=== PATIENT | female | born 1950 | race Caucasian/White ===

== ENCOUNTER 2024-08-15 23:35 | Emergency (ER) | payer BC, MEDICAID ==
[~2024-08-15] VITALS: Ht 162.6 cm; Wt 79.5 kg
[2024-08-16 00:57] LABS: BASOPHILS % (AUTO) 0.3 % (0-1); EOSINOPHILS % (AUTO) 0.5 % (0-6); HEMATOCRIT 43.2 % (35.0-45.0); HEMOGLOBIN 14.9 g/dl (12.0-16.0); LYMPHOCYTES # (AUTO) 0.6 X10'3 (1.1-4.8); LYMPHOCYTES % (AUTO) 6.1 % (21-51); MEAN CORPUSCULAR HGB CONC 34.5 g/dL (33.0-36.5); MEAN CORPUSCULAR VOLUME 92.7 FL (78-98); MEAN PLATELET VOLUME 8.7 FL (7.4-10.4); MONOCYTES # (AUTO) 0.4 X10'3 (0-0.9); MONOCYTES % (AUTO) 4.1 % (2-12); NEUTROPHILS # (AUTO) 8.5 X10'3 (1.8-7.7); PLATELET COUNT 232 X10'3 (140-440); RED BLOOD COUNT 4.66 X10'6 (4.20-5.60); RED CELL DISTRIBUTION WIDTH 13.1 % (11.5-14.5); WHITE BLOOD COUNT 9.5 X10'3 (4.5-11.0)
[2024-08-16 01:06] LABS: ALANINE AMINOTRANSFERASE 29 U/L (12-78); ALBUMIN 4.2 G/DL (3.4-5.0); ALKALINE PHOSPHATASE 71 IU/L (46-116); ANION GAP 11 (8-16); ASPARTATE AMINO TRANSFERASE 28 U/L (10-37); BILIRUBIN,TOTAL 0.7 MG/DL (0.1-1.0); BLOOD UREA NITROGEN 13 MG/DL (7-18); BUN/CREATININE RATIO 10.7 (10.0-20.0); CALCIUM 9.3 MG/DL (8.5-10.1); CHLORIDE 100 MMOL/L (99-107); CREATININE 1.22 MG/DL (0.40-0.90); GLUCOSE 173 MG/DL (70-104); LIPASE 26 U/L (16-77); POTASSIUM 4.1 MMOL/L (3.5-5.1); SODIUM 134 MMOL/L (135-145); TOTAL PROTEIN 8.3 G/DL (6.4-8.2); eCRCL 34 ML/MIN; eGFR 43 ML/MIN
--- NOTE | 2024-08-16 03:07 | Physician Documentation ---
History of Present Illness ~ Chief Complaint: Vomiting w/diarrhea Stated Complaint: VOMITING Time Seen by MD: 03:07 HPI 74-year-old female, who presents with sudden onset of abdominal pain, vomiting and diarrhea. She tells me that earlier today, she suddenly developed pain in her upper abdomen. She had multiple episodes of vomiting and diarrhea. She was sitting on the toilet and felt lightheaded like she is going to pass out. It was profuse and watery, nonbloody. She also reports subjective fevers and chills. She reports a history of chronic intermittent upper abdominal pain, but normally takes a gas pill and it gets better. Today it did not get better. No new foods or obvious exposures. No known sick contacts. No history of abdominal surgeries. She did receive Zofran in the ambulance and it helped a little bit. Medication Reconciliation Allergies: Coded Allergies: No Known Allergies (Unverified , 08/16/24) Scheduled PRN ONDANSETRON ODT 4mg tablet (Ondansetron Odt), 1 TAB PO Q6H PRN PRN for nausea/vomiting Review of Systems Constitutional: Reports: chills, fever Gastrointestinal: Reports: abdominal pain, nausea, vomiting, diarrhea Physical Exam Vital Signs: Temperature: 98.4, Source: Oral, Heart Rate: 88, Respiratory Rate: 16, BP: 124/69, Pulse Oximetry: 97, Weight: 79.550 Oxygen Flow Rate: 0 Physical Exam General: This is a tired appearing older female, daughter at bedside HEENT: Atraumatic, oropharynx is dry with cracked lips Heart: Regular rate and rhythm, normal-appearing peripheral perfusion Lungs: normal work of breathing, normal oxygen saturation on room air Abdomen: Soft, nondistended, mild tenderness to palpation in the epigastric region only, otherwise nontender, no rebound or guarding Neuro: Alert and oriented, no focal deficits Psychiatric: Flattened affect, appears tired Progress Results/Orders Results/Orders Orders - INZE SÁNCHEZ MD Urinalysis, Cult If Indicated (08/16/24 00:02) Completed Orders - INEZ SÁNCHEZ MD Cbc/Diff (08/16/24 00:02) Lipase (08/16/24 00:02) CMP (08/16/24 00:02) Normal Saline 1000ml (Sodium Chloride 10 (08/16/24 03:20) Ondansetron Inj. (Zofran 4mg/2ml Vial) (08/16/24 03:20) Dicyclomine Inj (Bentyl Inj) (08/16/24 03:20) Mag & Alum Hydrox/Simeth Susp (Maalox Or (08/16/24 03:20) Ondansetron Disint. Tablet (Zofran Odt T (08/16/24 05:05) Medications Received in ER Medications (Trade) Dose Ordered Sig/Fidelia Route PRN Reason Start Time Stop Time Status Last Admin Dose Admin Sodium Chloride 1,000 ml @ 1,000 mls/hr ONCE ONCE IV 08/16/24 03:20 08/16/24 04:19 DC 08/16/24 04:02 1,000 MLS/HR (Zofran 4mg/2ml vial) 4 mg ONCE ONCE IV 08/16/24 03:20 08/16/24 03:21 DC 08/16/24 04:02 4 MG (Bentyl inj) 20 mg ONCE ONCE IM 08/16/24 03:20 08/16/24 03:21 DC 08/16/24 04:02 20 MG (Maalox oral suspension) 30 ml ONCE ONCE PO 08/16/24 03:20 08/16/24 03:21 DC 08/16/24 04:02 30 ML (Zofran ODT tablet) 4 mg ONCE ONCE PO 08/16/24 05:05 08/16/24 05:11 DC 08/16/24 05:31 4 MG Vital Signs 08/16/24 08/16/24 08/16/24 08/16/24 00:03 02:21 03:00 04:08 Temp 97.4 98.4 Pulse 91 94 88 Resp 16 16 16 16 B/P (MAP) 104/56 98/50 (66) 124/69 (87) Pulse Ox 98 97 97 O2 Flow Rate 0 0 0 08/16/24 04:17 Pulse 74 Resp 18 B/P (MAP) 122/71 (88) Pulse Ox 97 Laboratory Tests Test 08/16/24 00:39 White Blood Count 9.5 Red Blood Count 4.66 Hemoglobin 14.9 Hematocrit 43.2 Mean Corpuscular Volume 92.7 Mean Corpuscular Hemoglobin 32.0 H Mean Corpuscular Hemoglobin Concent 34.5 Red Cell Distribution Width 13.1 Platelet Count 232 Mean Platelet Volume 8.7 Neutrophils (%) (Auto) 89.0 H Lymphocytes (%) (Auto) 6.1 L Monocytes (%) (Auto) 4.1 Eosinophils (%) (Auto) 0.5 Basophils (%) (Auto) 0.3 Neutrophils # (Auto) 8.5 H Lymphocytes # (Auto) 0.6 L Monocytes # (Auto) 0.4 Eosinophils # (Auto) 0.0 Basophils # (Auto) 0.0 CBC Comment Sodium Level 134 L Potassium Level 4.1 Chloride Level 100 Carbon Dioxide Level 23.0 L Anion Gap 11 Blood Urea Nitrogen 13 Creatinine 1.22 H Estimated GFR/1.73 m2 43 BUN/Creatinine Ratio 10.7 Glucose Level 173 H Calcium Level 9.3 Total Bilirubin 0.7 Aspartate Amino Transf (AST/SGOT) 28 Alanine Aminotransferase (ALT/SGPT) 29 Alkaline Phosphatase 71 Total Protein 8.3 H Albumin 4.2 Globulin 4.1 Albumin/Globulin Ratio 1.0 L Lipase 26 Chemistry Comments Re-Evaluation Re-Evaluation : Progress Re-evaluation: The patient is feeling better after treatment and is now tolerating oral hydration. Medical Decision Making Additional Comments Differential includes food poisoning, stomach virus, pancreatitis, hepatitis, dehydration, electrolyte derangement, UTI Assessment 74-year-old female presenting with sudden onset abdominal pain, nausea vomiting and diarrhea. Per her history, this seems most consistent with food poisoning or stomach virus. On examination she does have some epigastric tenderness but no peritoneal findings. Laboratory testing is grossly unremarkable, no abnormality to her LFTs or lipase. She does have symptoms of gastritis, and was given symptomatic treatment for gastritis and abdominal cramping. She was given IV fluids for hydration as she does appear clinically dehydrated. Following this she was able to tolerate oral hydration. She had no further diarrhea. At this time I feel she is safe for discharge home with symptomatic treatment and a prescription for Zofran. I doubt dangerous intra-abdominal process including gallbladder disease or dangerous inflammatory bowel process. If she has wors ening symptoms she will return for re-evaluation. Departure Time of Disposition: 04:48 Disposition: 01 HOME / SELF CARE / HOMELESS Impression: Primary Impression: Nausea vomiting and diarrhea Condition: Improved Referrals: NO PRIMARY CARE PROVIDER (PCP) Prescriptions ONDANSETRON ODT 4mg tablet (ONDANSETRON ODT) 4 Mg Tab.rapdis 1 TAB PO Q6H PRN PRN for nausea/vomiting for 4 Days, #16 TAB 0 Refills Prov: INEZ SÁNCHEZ MD 08/16/24 Education Educated: Patient, Family Educated regarding: diagnosis, treatment, need for follow up Signature Scribe Signature: na Attestation: INEZ Brand MD August 16, 2024 03:07
[2024-08-16] MEDS: normal saline 1000ml 1,000 ML IV ONE (04:02)
[2024-08-16] MEDS: ondansetron/PF 4mg/2ml inj IV ONE (04:02)
[2024-08-16] MEDS: mag hydrox/Alum hydrox/simeth 30ml oral suspension PO ONE (04:02)
[2024-08-16] MEDS: dicyclomine 10mg/ml 2ml ampule IM ONE (04:02)
[2024-08-16] MEDS ORDERED: ONDA-243 PO (05:03)
[2024-08-16] MEDS: ondansetron 4mg rapidly disintigrating tab PO ONE (05:31)
[2024-08-16 05:45] VITALS: BP 128/80; PULSE 80; RESP 18; TEMP 97.6; O2SAT 99
== END 2024-08-16 05:30 | disposition home or self-care (01) ==
LOC: ER 23:37
DX: R11.2 Nausea with vomiting, unspecified (principal); R19.7 Diarrhea, unspecified
CPT/HCPCS: 36415; 80053; 83690; 85025; 96361; 96372; 96374; 99285; J0500; J2405; J7030; 96375